=== PATIENT | female | born 1995 | race Two or more races ===

== ENCOUNTER 2017-02-16 17:00 | Emergency (ER) | payer OTHER ==
[~2017-02-16] VITALS: Ht 172.7 cm; Wt 69.9 kg
[2017-02-16 17:10] VITALS: BP 136/84
== END 2017-02-16 19:30 | disposition home or self-care (01) ==
LOC: ER 17:02
DX: S01.512A Laceration without foreign body of oral cavity, initial encounter (principal); L08.9 Local infection of the skin and subcutaneous tissue, unspecified; K13.1 Cheek and lip biting; X58.XXXA Exposure to other specified factors, initial encounter; Y93.89 Activity, other specified; Y99.8 Other external cause status; Y92.89 Other specified places as the place of occurrence of the external cause